=== PATIENT | male | born 1995 | race Caucasian/White ===

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

== ENCOUNTER 2017-12-22 00:20 | Emergency (ER) | payer OTHER ==
[2017-12-22 01:13] LABS: KETONE, URINE AUTO RFX NEGATIVE (NEGATIVE); LEUKOCYTE ESTERASE UR AUTO RFX NEGATIVE (NEGATIVE); NITRITE, URINE AUTO RFX NEGATIVE (NEGATIVE); RBC, URINE AUTO RFX 1 /HPF (0-3); SQUAM EPITHELIAL CELL UR AURFX 0 /HPF (0-6); WBC, URINE AUTO RFX 1 /HPF (0-3)
[2017-12-22] MEDS: NAPROXEN 250 MG TAB PO (01:26)
== END 2017-12-22 01:35 | disposition home or self-care (01) ==
LOC: M ED 00:20
DX: R10.9 Unspecified abdominal pain (principal)
CPT/HCPCS: 81001

== ENCOUNTER 2018-08-14 18:51 | Emergency (ER) | payer OTHER ==
[~2018-08-14] VITALS: Ht 172.7 cm; Wt 63.6 kg
[~2018-08-14 18:51] MED LIST: KEFL500C17 PO; NAPR-837 PO
[2018-08-14 18:52] VITALS: BP 138/78
[2018-08-14] MEDS ORDERED: AUGM875T28 PO (19:28)
[2018-08-14] MEDS ORDERED: NAPR-837 PO (19:28)
[2018-08-14] MEDS ORDERED: NAPROXEN 250 MG TAB PO ONE (19:30)
[2018-08-14] MEDS ORDERED: AUGMENTIN 875 MG TAB PO ONE (19:30)
== END 2018-08-14 19:39 | disposition home or self-care (01) ==
LOC: M ED 18:51
DX: K08.89 Other specified disorders of teeth and supporting structures (principal)

== ENCOUNTER 2022-08-30 22:19 | Emergency (ER) | payer OTHER ==
[~2022-08-30 22:19] MED LIST changes: +AUGM875T28 PO
[2022-08-31] MEDS ORDERED: ACETAMINOPHEN 1000MG 100ML IV BAG IV ONE (01:40)
[2022-08-31] MEDS ORDERED: NS 1,000 ML IV ONE (01:40)
[2022-08-31 02:25] LABS: BASO % 0.1 % (0.0-1.0); EOS % 0.1 % (0.0-3.0); HEMATOCRIT 44.6 % (42.0-52.0); HEMOGLOBIN 15.2 g/dl (13.5-17.5); LYMPH # 1.1 10^3/uL (1.5-5.0); LYMPH % 5.5 % (24.0-44.0); MEAN CORPUSCULAR HEMOGLOBIN 31.5 pg (27.0-33.0); MEAN CORPUSCULAR HGB CONC 34.1 g/dl (32.0-36.5); MEAN CORPUSCULAR VOLUME 92.5 fl (80.0-96.0); MONO # 1.1 10^3/uL (0.0-0.8); MONO % 5.7 % (2.0-8.0); NEUTROPHILS # 17.2 10^3/uL (1.5-8.5); NEUTROPHILS % 88.2 % (36.0-66.0); PLATELET COUNT, AUTOMATED 199 10^3/uL (150-450); RED BLOOD COUNT 4.82 10^6/uL (4.30-6.10); WHITE BLOOD COUNT 19.5 10^3/uL (4.0-10.0)
[2022-08-31 02:40] LABS: BLOOD UREA NITROGEN 14 MG/DL (9-23); CALCIUM LEVEL 9.2 MG/DL (8.5-10.1); CARBON DIOXIDE LEVEL 26 MMOL/L (20-31); CHLORIDE LEVEL 105 MMOL/L (98-107); CREATININE FOR GFR 0.67 MG/DL (0.70-1.30); GLOMERULAR FILTRATION RATE > 60.0 (>60); GLUCOSE, FASTING 114 MG/DL (60-100); POTASSIUM SERUM 3.8 MMOL/L (3.5-5.1); SODIUM LEVEL 137 MMOL/L (136-145)
[2022-08-31] MEDS ORDERED: ISOVUE-370 76% 100ML VIAL As Ordered ONE (02:41)
[2022-08-31 05:57] VITALS: BP 107/68
== END 2022-08-31 06:06 | disposition home or self-care (01) ==
LOC: M ED 22:19
DX: R55 Syncope and collapse (principal)
CPT/HCPCS: 36415; 70450; 70491; 71260; 72125; 80048; 85025; 99284; J0131; Q9967